=== PATIENT | male | born 1975 | race Caucasian/White ===

== ENCOUNTER 2023-02-08 00:22 | Emergency (ER) | payer SELFPAY ==
[~2023-02-08] VITALS: Ht 175.3 cm; Wt 93.6 kg
[2023-02-08 01:00] VITALS: BP 101/55; PULSE 84; RESP 17; TEMP 99.4; O2SAT 96
[2023-02-08] MEDS ORDERED: KETOROLAC 30 MG/ML VIAL IM ONE (01:25)
[2023-02-08 02:05] LABS: BASOPHILS % (AUTO) 0.2 % (0.0-2.0); HEMATOCRIT 36.9 % (36-52); HEMOGLOBIN 11.5 g/dL (12.0-18.0); LYMPHOCYTES # (AUTO) 0.4 K/uL (2.0-11.5); LYMPHOCYTES % (AUTO) 15.9 % (20.5-51.1); MEAN CORPUSCULAR HEMOGLOBIN 19 pg (27-31); MEAN CORPUSCULAR HGB CONC 31 g/dL (33-37); MEAN CORPUSCULAR VOLUME 60.1 fL (80-94); MONOCYTES # (AUTO) 0.4 K/uL (0.8-1.0); MONOCYTES % (AUTO) 15.5 % (1.7-9.3); NEUTROPHILS # (AUTO) 1.8 K/uL (1.8-7.7); NEUTROPHILS % (AUTO) 68.4 % (42.2-75.2); PLATELET COUNT (AUTO) 156 K/uL (140-450); RED BLOOD CELL COUNT(AUTO) 6.14 MIL/uL (4.20-6.10); RED CELL DISTRIBUTION WIDTH 16.7 % (11.6-13.7); WHITE BLOOD COUNT (AUTO) 2.6 K/uL (4.8-10.8)
[2023-02-08 02:38] LABS: APPEARANCE,URINE CLEAR (CLEAR); BILIRUBIN,URINE NEGATIVE (NEGATIVE); BLOOD, URINE NEGATIVE (NEGATIVE); COLOR,URINE YELLOW (YELLOW); LEUKOCYTE ESTERASE ,URINE NEGATIVE (NEGATIVE); NITRITE, URINE NEGATIVE (NEGATIVE); PH,URINE 5.5 (5.0-9.0); PROTEIN,URINE TRACE (NEGATIVE); UGLUCOSE NEGATIVE (NEGATIVE); UROBILINOGEN,URINE 0.2 EU/dL (0.2 - 1)
[2023-02-08 02:50] LABS: ALBUMIN 3.2 g/dL (3.4-5.0); ANION GAP 11.9 (8-16); CALCIUM 7.9 mg/dL (8.5-10.1); CARBON DIOXIDE 26.8 mmol/L (21-32); CREATININE 1.2 mg/dL (0.6-1.3); POTASSIUM 3.7 mmol/L (3.5-5.1); TOTAL BILIRUBIN 0.2 mg/dL (0.0-1.0); TOTAL PROTEIN, SERUM 6.6 g/dL (6.4-8.2)
[2023-02-08 02:55] LABS: BACTERIA,URINE OCCASSIONAL /HPF (None Seen); MUCUS,URINE 1+ /LPF (None Seen); RBC,URINE NONE SEEN /HPF (0-5); SQUAMOUS EPITHELIAL CELL,UR 0-3 (FEW) /LPF (0-3 (FEW)); WBC,URINE 0-5 /HPF (0-5); WHITE BLOOD CELL CASTS,URINE 0-3 /LPF (None Seen)
[2023-02-08 02:55] LABS: LACTIC ACID 0.9 mmol/L (0.4-2.0)
[2023-02-08 02:56] LABS: HYALINE CASTS, URINE 0-2 /LPF (None Seen); URIC ACID CRYSTALS,URINE 0-10 /HPF (None Seen)
[2023-02-08 03:35] LABS: ANISOCYTOSIS 2+; HYPOCHROMASIA 1+; POIKILOCYTOSIS 2+
[2023-02-08 03:54] LABS: FLU A ANTIGEN negative (NEGATIVE); FLU B ANTIGEN negative (NEGATIVE)
[2023-02-08] MEDS ORDERED: IBUP-2213 PO (04:05)
[2023-02-08 04:18] VITALS: BP 118/85; PULSE 75; RESP 18; TEMP 98.9; O2SAT 98
== END 2023-02-08 04:18 | disposition home or self-care (01) ==
LOC: MED 00:22
DX: R50.9 Fever, unspecified (principal); M79.18 Myalgia, other site; D72.819 Decreased white blood cell count, unspecified; D50.9 Iron deficiency anemia, unspecified; Z20.822 Contact with and (suspected) exposure to COVID-19; Z79.1 Long term (current) use of non-steroidal anti-inflammatories (NSAID)
CPT/HCPCS: 36415; 71045; 80053; 81001; 83605; 85025; 87040; 87426; 87804; 96372; 99284; J1885; Q0092